=== PATIENT | male | born 1990 | race Caucasian/White ===

== ENCOUNTER 2017-06-15 14:39 | Emergency (ER) | payer MEDICAID, OTHER ==
[2017-06-15] MEDS ORDERED: Ketorolac 60 MG/2 ML SDV IM ONE (15:11)
[2017-06-15] MEDS ORDERED: Ondansetron 4 MG Tab.DIS PO ONE (15:11)
[2017-06-15] MEDS ORDERED: Sodium Chloride 0.9% 10 ML Syringe FLUSH PRN (15:12)
[2017-06-15] MEDS ORDERED: Lactated Ringers 1,000 ML IV ONE (15:12)
[2017-06-15] MEDS ORDERED: Ketorolac 30 MG/ML SDV IVPUSH ONE (15:12)
[2017-06-15] MEDS ORDERED: Ondansetron 4 MG/2 ML SDV IVPUSH ONE (15:12)
--- NOTE | 2017-06-15 15:16 | EDM.PDOC ---
ED HPI GENERAL MEDICAL PROBLEM - General Chief Complaint: Gastrointestinal Problem Stated Complaint: VOMITING Time Seen by Provider: 06/15/17 14:59 Source of Information: Reports: Patient, Family, RN Notes Reviewed History Limitations: Reports: No Limitations - History of Present Illness INITIAL COMMENTS - FREE TEXT/NARRATIVE: 26-year-old gentleman presents emergency department today complaint of nausea vomiting and left flank pain, the pain started early this morning around 3 AM has progressively gotten worse as well as the nausea and vomiting, denies any fevers no history of abdominal surgery Lower Abdominal Pain Score (Numeric/FACES): 9 - Related Data Allergies Allergy/AdvReac Type Severity Reaction Status Date / Time No Known Allergies Allergy Verified 06/15/17 14:51 Home Meds: Home Meds NK [No Known Home Meds] 06/15/17 [History] Past Medical History - Past Health History Medical/Surgical History: Denies Medical/Surgical History Social & Family History - Tobacco Use Smoking Status *Q: Unknown Ever Smoked - Caffeine Use Caffeine Use: Reports: None - Recreational Drug Use Recreational Drug Use: Yes Recreational Drug Type: Reports: Marijuana/Hashish Recreational Drug Use Frequency: Daily ED ROS GENERAL - Review of Systems Review Of Systems: See Below Constitutional: Reports: No Symptoms HEENT: Reports: No Symptoms Respiratory: Reports: No Symptoms Cardiovascular: Reports: No Symptoms GI/Abdominal: Reports: Abdominal Pain, Nausea, Vomiting : Reports: No Symptoms Musculoskeletal: Reports: No Symptoms Skin: Reports: No Symptoms ED EXAM, GI/ABD - Physical Exam Exam: See Below Exam Limited By: No Limitations General Appearance: Alert, Mild Distress Eyes: Bilateral: Normal Appearance Throat/Mouth: No Airway Compromise Head: Atraumatic, Normocephalic Neck: Normal Inspection, Supple, Non-Tender, Full Range of Motion Respiratory/Chest: No Respiratory Distress, Lungs Clear, Normal Breath Sounds Cardiovascular: Regular Rate, Rhythm, No Murmur GI/Abdominal Exam: Soft, No Abnormal Bruit, Tender Course - Vital Signs Last Recorded V/S: Last Vital Signs Temp 99.5 F 06/15/17 16:15 Pulse 76 06/15/17 16:15 Resp 16 06/15/17 16:15 BP 114/66 06/15/17 16:15 Pulse Ox 98 06/15/17 16:15 - Orders/Labs/Meds Orders: Active Orders 24 hr Category Date Time Status Peripheral IV Care [RC] . DIRECTED Care 06/15/17 15:13 Active Abdomen Pelvis wo Cont [CT] Urgent Exams 06/15/17 15:09 Taken Sodium Chloride 0.9% [Saline Flush] Med 06/15/17 15:12 Active 10 ml FLUSH ASDIRECTED PRN Peripheral IV Insertion Adult [OM.PC] Urgent Oth 06/15/17 15:12 Ordered Medication Orders Sodium Chloride (Saline Flush) 10 ml FLUSH ASDIRECTED PRN PRN Reason: Keep Vein Open Labs: Laboratory Tests 06/15/17 06/15/17 06/15/17 Range/Units 15:09 15:12 15:24 WBC 21.3 H (4.5-11.0) K/uL RBC 5.33 (4.30-5.90) M/uL Hgb 16.1 H (12.0-15.0) g/dL Hct 45.1 (40.0-54.0) % MCV 85 (80-98) fL MCH 30 (27-31) pg MCHC 36 (32-36) % Plt Count 299 (150-400) K/uL Neut % (Auto) 92 H (36-66) % Lymph % (Auto) 2 L (24-44) % [place] % (Auto) 5 (2-6) % Eos % (Auto) 0 L (2-4) % Baso % (Auto) 0 (0-1) % Sodium 137 L (140-148) mmol/L Potassium 3.5 L (3.6-5.2) mmol/L Chloride 101 (100-108) mmol/L Carbon Dioxide 22 (21-32) mmol/L Anion Gap 17.5 H (5.0-14.0) mmol/L BUN 19 H (7-18) mg/dL Creatinine 1.2 (0.8-1.3) mg/dL Est Cr Clr Drug Dosing 110.36 mL/min Estimated GFR (MDRD) > 60 (>60) Glucose 156 H (74-106) mg/dL Calcium 9.4 (8.5-10.1) mg/dL Total Bilirubin 1.1 H (0.2-1.0) mg/dL AST 24 (15-37) U/L ALT 56 (12-78) U/L Alkaline Phosphatase 84 (46-116) U/L Total Protein 7.9 (6.4-8.2) g/dL Albumin 4.6 (3.4-5.0) g/dL Globulin 3.3 (2.3-3.5) g/dL Albumin/Globulin Ratio 1.4 (1.2-2.2) Lipase 66 L (73-393) U/L Urine Color Yellow Urine Appearance Clear Urine pH 8.0 (4.5-8.0) Ur Specific [place] 1.010 (1.008-1.030) Urine Protein Negative (NEGATIVE) mg/dL Urine Glucose (UA) Normal (NEGATIVE) mg/dL Urine Ketones 50 H (NEGATIVE) mg/dL Urine Occult Blood Negative (NEGATIVE) Urine Nitrite Negative (NEGAITVE) Urine Bilirubin Negative (NEGATIVE) Urine Urobilinogen Normal (NORMAL) mg/dL Ur Leukocyte Esterase Negative (NEGATIVE) Urine RBC Not seen (0-5) Urine WBC 0-5 (0-5) Ur Epithelial Cells Rare Amorphous Sediment Not seen Urine Bacteria Rare Urine Mucus Rare Meds: Medications Generic Name Dose Route Start Last Admin Trade Name Freq PRN Reason Stop Dose Admin Sodium Chloride 10 ml 06/15/17 15:12 Saline Flush FLUSH ASDIRECTED PRN Keep Vein Open Discontinued Medications Generic Name Dose Route Start Last Admin Trade Name Freq PRN Reason Stop Dose Admin Lactated Ringer's 1,000 mls @ 999 mls/hr 06/15/17 15:12 06/15/17 15:35 Ringers, Lactated IV 06/15/17 16:12 999 mls/hr BOLUS ONE Administration Ketorolac Tromethamine 60 mg 06/15/17 15:11 Toradol IM 06/15/17 15:12 ONETIME ONE Ketorolac Tromethamine 30 mg 06/15/17 15:12 06/15/17 15:38 Toradol IVPUSH 06/15/17 15:13 30 mg ONETIME ONE Administration Ondansetron HCl 4 mg 06/15/17 15:11 Zofran Odt PO 06/15/17 15:12 ONETIME ONE Ondansetron HCl 4 mg 06/15/17 15:12 06/15/17 15:36 Zofran IVPUSH 06/15/17 15:13 4 mg ONETIME ONE Administration Departure - Departure Time of Disposition: 17:10 Disposition: Home, Self-Care 01 Condition: Good Clinical Impression: Gastroenteritis - Discharge Information Referrals: PCP,None [Primary Care Provider] - Forms: ED Department Discharge Additional Instructions: Use Zofran as needed for nausea and vomiting symptoms, use ibuprofen as needed for pain symptoms Please followup with your primary care provider in 3-5 days if not better, please call return to the emergency department with worsening of symptoms. - My Orders Last 24 Hours: My Active Orders 06/15/17 15:09 Abdomen Pelvis wo Cont [CT] Urgent 06/15/17 15:12 Sodium Chloride 0.9% [Saline Flush] 10 ml FLUSH ASDIRECTED PRN Peripheral IV Insertion Adult [OM.PC] Urgent 06/15/17 15:13 Peripheral IV Care [RC] . DIRECTED - Assessment/Plan Last 24 Hours: My Active Orders 06/15/17 15:09 Abdomen Pelvis wo Cont [CT] Urgent 06/15/17 15:12 Sodium Chloride 0.9% [Saline Flush] 10 ml FLUSH ASDIRECTED PRN Peripheral IV Insertion Adult [OM.PC] Urgent 06/15/17 15:13 Peripheral IV Care [RC] . DIRECTED Plan: Assessment Acuity = acute Site and laterality = gastroenteritis Etiology = probable viral Manifestations = nausea and vomiting Location of injury = Home Lab values = WBC elevated to 21.3 consistent leukocytosis, CMP acceptable, urinalysis no acute process. CT scan shows no acute process Plan Good relief with fluids, Toradol and Zofran. Be discharged home with Zofran 4 mg ODT 1 tab by mouth 3 times a day when necessary follow-up with primary care 3 -5 days if no improvement Patient was in agreement with the plan all questions were answered, they were instructed to return to the emergency department or call for worsening symptoms. This note was dictated using [employer] voice recognition software please call with any questions.
== END 2017-06-15 17:20 | disposition home or self-care (01) ==
LOC: JP.ED 14:39
DX: K52.9 Noninfective gastroenteritis and colitis, unspecified (principal)
CPT/HCPCS: 36415; 74176; 80053; 81001; 83690; 85025; 87804; 96361; 96372; 96374; 96375; 99284; J1885; J2405; J7120

== ENCOUNTER 2023-12-30 21:45 | Emergency (ER) | payer SELFPAY ==
[2023-12-30] MEDS: Methocarbamol 500 MG Tab PO ONE (23:22)
== END 2023-12-31 00:10 | disposition home or self-care (01) ==
LOC: JP.ED 21:45
DX: S76.312A Strain of muscle, fascia and tendon of the posterior muscle group at thigh level, left thigh, initial encounter (principal); S76.311A Strain of muscle, fascia and tendon of the posterior muscle group at thigh level, right thigh, initial encounter; Z79.899 Other long term (current) drug therapy; X50.0XXA Overexertion from strenuous movement or load, initial encounter; Y93.89 Activity, other specified
CPT/HCPCS: 99283; A9270